=== PATIENT | female | born 1930 | race Caucasian/White ===

== ENCOUNTER 2016-10-18 14:02 | Outpatient (CLI) | payer MEDICARE | END 2016-10-18 14:03 | disposition home or self-care (01) | DX: R56.9 Unspecified convulsions (principal) ==

== ENCOUNTER 2016-10-30 14:00 | Observation (INO) | payer MEDICARE ==
[2016-10-30] MEDS ORDERED: cefTRIAXone 500 MG VIAL IVP STA (16:20)
[2016-10-30] MEDS ORDERED: SODIUM CHLORIDE FLUSH 0.9% 10 ML SYRINGE IVP PRN (16:25)
[2016-10-30] MEDS ORDERED: ACETAMINOPHEN 325 MG TABLET PO PRN (16:32)
[2016-10-30] MEDS ORDERED: cefTRIAXone 1 GM VIAL ONE (16:38)
[2016-10-30] MEDS ORDERED: INSULIN REGULAR HUMAN 100 UNIT/1 ML 10 ML MDV SUBQ SCH (18:00)
[2016-10-30] MEDS ORDERED: DEXTROSE 50% ABBOJECT 25 GM/50 ML SYRINGE IVP PRN (18:36)
[2016-10-30] MEDS ORDERED: DEXTROSE GEL 37.5 GM TUBE PO PRN (18:36)
[2016-10-30] MEDS ORDERED: DEXTROSE 5% 1,000 ML IV PRN (18:36)
[2016-10-30] MEDS ORDERED: GLUCAGON 1 MG/ML VIAL SUBQ PRN (18:36)
[2016-10-30] MEDS ORDERED: ALBUTEROL NEB 2.5 MG/3 ML INH PRN (18:49)
[2016-10-30] MEDS: levETIRAcetam 250 MG TABLET PO SCH (20:53)
[2016-10-30] MEDS: SODIUM CHLORIDE FLUSH 0.9% 10 ML SYRINGE IVP SCH (20:55)
[2016-10-30] MEDS: DABIGATRAN 75 MG CAPSULE PO SCH (20:55)
[2016-10-30] MEDS ORDERED: ATENOLOL 25 MG TABLET PO SCH (21:00)
[2016-10-30] MEDS: INSULIN ASPART 300 UNIT/3 ML PEN SUBQ SCH (22:57)
[2016-10-30] MEDS ORDERED: LOSARTAN 50 MG TABLET PO SCH (23:00)
[2016-10-31] MEDS: SODIUM CHLORIDE FLUSH 0.9% 10 ML SYRINGE IVP SCH (06:44)
[2016-10-31] MEDS ORDERED: LEVOTHYROXINE 75 MCG TABLET PO SCH (07:00)
[2016-10-31] MEDS ORDERED: BUDESONIDE 0.5 MG/2 ML NEB INH SCH (07:00)
[2016-10-31] MEDS ORDERED: POLYETHYLENE GLYCOL 3350 17 GM PACKET PO SCH (09:00)
[2016-10-31] MEDS ORDERED: FELODIPINE ER 2.5 MG TABLET PO SCH (09:00)
[2016-10-31] MEDS ORDERED: POTASSIUM CHLORIDE 10 MEQ CAPSULE PO SCH (09:00)
[2016-10-31] MEDS ORDERED: FUROSEMIDE 20 MG TABLET PO SCH (09:00)
[2016-10-31] MEDS ORDERED: FAMOTIDINE 20 MG TABLET PO SCH (09:00)
[2016-10-31] MEDS ORDERED: LOSARTAN 50 MG TABLET PO SCH (09:00)
[2016-10-31] MEDS ORDERED: PRENATAL VITAMIN TABLET PO SCH (09:00)
[2016-10-31] MEDS ORDERED: cefTRIAXone 2 GM in SODIUM CHLORIDE 0.9% MINIBAG 100 ML IV SCH (09:00)
[2016-10-31] MEDS ORDERED: NON FORMULARY MED (Rivaroxaban [Xarelto] 20 MG) PO SCH (09:00)
[2016-10-31] MEDS: INSULIN ASPART 300 UNIT/3 ML PEN SUBQ SCH ×2 (09:24→13:00)
[2016-10-31] MEDS: DABIGATRAN 75 MG CAPSULE PO SCH (09:25)
[2016-10-31] MEDS: levETIRAcetam 250 MG TABLET PO SCH (09:28)
== END 2016-10-31 13:15 | disposition home or self-care (01) ==
DX: R55 Syncope and collapse (principal); I11.0 Hypertensive heart disease with heart failure; E11.9 Type 2 diabetes mellitus without complications; Z79.01 Long term (current) use of anticoagulants; I69.354 Hemiplegia and hemiparesis following cerebral infarction affecting left non-dominant side; I69.328 Other speech and language deficits following cerebral infarction; I69.392 Facial weakness following cerebral infarction; J44.9 Chronic obstructive pulmonary disease, unspecified; I48.92 Unspecified atrial flutter; I48.91 Unspecified atrial fibrillation; I50.9 Heart failure, unspecified; I25.10 Atherosclerotic heart disease of native coronary artery without angina pectoris; E03.9 Hypothyroidism, unspecified; Z79.84 Long term (current) use of oral hypoglycemic drugs; Z95.2 Presence of prosthetic heart valve; Z66 Do not resuscitate
CPT/HCPCS: 36415; 71010; 80053; 80061; 81001; 83036; 83690; 83880; 84484; 85025; 85610; 85730; 93005; 93010; 93880; 96365; 96375; 99284; 99285; A9270; G0378

== ENCOUNTER 2017-01-08 17:26 | Outpatient (CLI) | payer MEDICARE | END 2017-01-08 17:27 | disposition critical access hospital (66) | DX: R53.1 Weakness (principal); R29.810 Facial weakness; R47.81 Slurred speech | CPT/HCPCS: A0425; A0429 ==

== ENCOUNTER 2017-01-08 17:51 | Observation (INO) | payer MEDICARE ==
[2017-01-08] MEDS ORDERED: HYDROcod/ACETAM 5/325 MG TABLET PO PRN (20:13)
[2017-01-08] MEDS ORDERED: PROCHLORPERAZINE 10 MG/2 ML VIAL IVP PRN (20:13)
[2017-01-08] MEDS ORDERED: ACETAMINOPHEN 325 MG TABLET PO PRN (20:13)
[2017-01-08] MEDS ORDERED: SODIUM CHLORIDE FLUSH 0.9% 10 ML SYRINGE IVP PRN (20:13)
[2017-01-08] MEDS ORDERED: HYDROcod/ACETAM 10 MG/325 MG TABLET PO PRN (20:13)
[2017-01-08] MEDS ORDERED: ZOLPIDEM 5 MG TABLET PO PRN (20:13)
[2017-01-08] MEDS ORDERED: ONDANSETRON 4 MG/2 ML VIAL IVP PRN (20:13)
[2017-01-08] MEDS ORDERED: ATENOLOL 25 MG TABLET PO SCH (21:00)
[2017-01-08] MEDS: DABIGATRAN 75 MG CAPSULE PO SCH (21:55)
[2017-01-08] MEDS: SODIUM CHLORIDE FLUSH 0.9% 10 ML SYRINGE IVP SCH (21:55)
[2017-01-08] MEDS: levETIRAcetam 250 MG TABLET PO SCH (21:55)
[2017-01-08] MEDS: LOSARTAN 50 MG TABLET PO SCH (21:55)
[2017-01-08] MEDS: INSULIN ASPART 300 UNIT/3 ML PEN SUBQ SCH (21:56)
[2017-01-08] MEDS: ATORVASTATIN 40 MG TABLET PO SCH ×2 (21:56→22:26)
[2017-01-08] MEDS: SODIUM CHLORIDE 0.9% 1,000 ML IV SCH (21:59)
[2017-01-09] MEDS: SODIUM CHLORIDE FLUSH 0.9% 10 ML SYRINGE IVP SCH ×2 (06:08→14:52)
[2017-01-09] MEDS: SODIUM CHLORIDE 0.9% 1,000 ML IV SCH (06:08)
[2017-01-09] MEDS ORDERED: PANTOPRAZOLE 40 MG TABLET PO SCH (07:00)
[2017-01-09] MEDS ORDERED: LEVOTHYROXINE 75 MCG TABLET PO SCH (07:00)
[2017-01-09] MEDS: INSULIN ASPART 300 UNIT/3 ML PEN SUBQ SCH ×2 (07:50→12:49)
[2017-01-09] MEDS ORDERED: ASPIRIN 325 MG TABLET PO SCH (08:00)
[2017-01-09] MEDS: LOSARTAN 50 MG TABLET PO SCH (08:54)
[2017-01-09] MEDS: levETIRAcetam 250 MG TABLET PO SCH (08:55)
[2017-01-09] MEDS: DABIGATRAN 75 MG CAPSULE PO SCH (08:59)
[2017-01-09] MEDS ORDERED: PRENATAL VITAMIN TABLET PO SCH (09:00)
[2017-01-09] MEDS: POLYETHYLENE GLYCOL 3350 17 GM PACKET PO SCH ×2 (09:00→09:07)
[2017-01-09] MEDS ORDERED: POTASSIUM CHLORIDE 10 MEQ CAPSULE PO SCH (09:00)
[2017-01-09] MEDS ORDERED: FELODIPINE ER 2.5 MG TABLET PO SCH (09:00)
[2017-01-09] MEDS ORDERED: ATENOLOL 25 MG TABLET PO SCH (09:00)
[2017-01-09] MEDS ORDERED: METOPROLOL SUCCINATE 50 MG TABLET PO SCH (09:00)
== END 2017-01-09 15:36 | disposition home or self-care (01) ==
DX: G40.909 Epilepsy, unspecified, not intractable, without status epilepticus (principal); I69.352 Hemiplegia and hemiparesis following cerebral infarction affecting left dominant side; I69.391 Dysphagia following cerebral infarction; R13.10 Dysphagia, unspecified; I69.322 Dysarthria following cerebral infarction; I69.392 Facial weakness following cerebral infarction; I48.2 Chronic atrial fibrillation; I11.0 Hypertensive heart disease with heart failure; I50.9 Heart failure, unspecified; E11.9 Type 2 diabetes mellitus without complications; I49.5 Sick sinus syndrome; I48.92 Unspecified atrial flutter; I27.2 Other secondary pulmonary hypertension; I25.10 Atherosclerotic heart disease of native coronary artery without angina pectoris; E78.5 Hyperlipidemia, unspecified; E03.9 Hypothyroidism, unspecified; J44.9 Chronic obstructive pulmonary disease, unspecified; Z95.3 Presence of xenogenic heart valve; Z79.84 Long term (current) use of oral hypoglycemic drugs; Z79.01 Long term (current) use of anticoagulants; Z66 Do not resuscitate; Z87.891 Personal history of nicotine dependence
CPT/HCPCS: 36415; 70450; 70496; 70498; 70551; 80053; 80061; 81003; 83036; 83690; 84484; 85025; 85610; 85730; 93005; 93010; 93306; 96360; 96361; 99284; 99285; A9270; G0378